=== PATIENT | male | born 1970 | race Caucasian/White ===

== ENCOUNTER 2017-02-20 21:13 | Emergency (ER) | payer SELFPAY ==
--- NOTE | 2017-02-20 22:27 | ER Document Report ---
ED General - General Chief Complaint: Leg Pain Stated Complaint: LEFT LEG PAIN Time Seen by Provider: 02/20/17 22:06 Notes: Patient is a 38-year-old male presents with complaint of pain behind his left knee. Patient says it has been there for approximately week. He feels a small swollen area behind his knee. The remainder of his leg is nontender. 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 Patient also mentions that he does take testosterone for bodybuilding. She denies any fevers. No vomiting. No diarrhea. No chest pain. Patient's second complaint is that at times he will get some pressure behind his ears. Patient says it seems to happen more when he is angry. He denies any actual headache. He denies any focal weakness or numbness. No fevers. He does not take blood pressure medications. He again says his chest pressure behind his ears. He says he does not really have any pressure into the top of his head. He does chewing tobacco. He does not smoke. He does drink alcohol daily. He denies recent URI. - Related Data Allergies/Adverse Reactions: No Known Allergies Allergy (Unverified 10/01/11 22:59) Past Medical History - Social History Smoking Status: Never Smoker Chew tobacco use (# tins/day): Yes Frequency of alcohol use: Heavy Drug Abuse: None Family History: Reviewed & Not Pertinent Patient has suicidal ideation: No Patient has homicidal ideation: No Renal/ Medical History: Denies: Hx Peritoneal Dialysis - Immunizations Hx Diphtheria, Pertussis, Tetanus Vaccination: Yes Review of Systems - Review of Systems Notes: My Normal Review Basic REVIEW OF SYSTEMS: CONSTITUTIONAL : Denies fever, chills, or sweats. Denies recent illness. EENT: Occasional pressure behind ears. CARDIOVASCULAR: Denies chest pain. RESPIRATORY: Denies cough, cold, or chest congestion. Denies shortness of breath, difficulty breathing, or wheezing. GASTROINTESTINAL: Denies abdominal pain. Denies nausea, vomiting, or diarrhea. Denies constipation. Last BM: MUSCULOSKELETAL: Pain behind left knee. SKIN: Denies rash or skin lesions. NEUROLOGICAL: Denies altered mental status or loss of consciousness. Denies headache. Denies weakness or paralysis or loss of use of either side. Denies problems with gait or speech. Denies sensory or motor loss. ALL OTHER SYSTEMS REVIEWED AND NEGATIVE. Physical Exam - Vital signs Vitals: Temp Pulse Resp BP Pulse Ox 98 F 81 18 158/84 H 97 02/20/17 21:22 02/20/17 21:22 02/20/17 21:22 02/20/17 21:22 02/20/17 21:22 - Notes Notes: General Appearance: Well nourished, alert, cooperative, no acute distress, no obvious discomfort. Well-appearing. Vitals: reviewed, See vital signs table. Head: no swelling or tenderness to the head Eyes: PERRL, EOMI, Conjuctiva clear Ears: Normal-appearing tympanic membranes bilaterally. Mouth: No decreasd moisture Lungs: No wheezing, No rales, No rhonci, No accessory muscle use, good air exchange bilaterally. Heart: Normal rate, Regular rythm, No murmur, no rub Extremities: strength 5/5 in all extremities, good pulses in all extremities, more area of swelling behind left knee. Slight tenderness to palpation bilateral left knee. Remainder of left lower extremity is nontender and there is no edema. No redness. No warmth. Right lower extremity is normal. Bedside ultrasound was performed. Popliteal vein appears compressible on bedside ultrasound. Left femoral vein is fully compressible with good augmentation. Skin: warm, dry, appropriate color, no rash Neuro: speech clear, oriented x 3, normal affect, responds appropriately to questions. Renal nerves II through XII are intact. Distal sensation intact. Patient moves all extremities without difficulty. Course - Re-evaluation Re-evalutation: 02/20/17 23:21 I suspect the patient most likely is a Pradhan's cyst behind his knee based on his job and the small amount of localized swelling just behind the left knee itself. I did do a bedside ultrasound to look for evidence of DVT. I did not see any. I did explain to the patient length that it is less likely has a DVT however the bedside ultrasound is not 100% and that still very important that he follows up tomorrow for official venous ultrasound of the left lower extremity. I did write prescription for him to have this performed. Patient agrees to do this. Patient is on testosterone which puts him at risk for developing clots. The testosterone is not prescribed. I informed him that he must stop taking this as it can cause multiple medical problems including heart attack and cardiomyopathy. Patient agrees. Patient will be discharged home. Patient encouraged to return to ER if he has fevers, chest pain, difficulty breathing, severe headache, vomiting, or worsening swelling or pain in the leg. Patient agrees with plan will be discharged home. Patient occasionally has a pressure behind his ears. He denies any actual true headache. He has no neck pain. I encouraged him to quit all tobacco use including chewing tobacco. Dictation of this chart was performed using voice recognition software; therefore, there may be some unintended grammatical errors. - Vital Signs Vital signs: Temp Pulse Resp BP Pulse Ox 98 F 66 14 135/82 H 98 02/20/17 21:22 02/20/17 22:32 02/20/17 22:32 02/20/17 22:32 02/20/17 22:32 Discharge - Discharge Clinical Impression: Leg pain Qualifiers: Laterality: left Qualified Code(s): M79.605 - Pain in left leg Condition: Good Disposition: HOME, SELF-CARE Additional Instructions: Please return to the ER immediately if you develop worsening leg pain or leg swelling, fevers, severe headache, vomiting, difficulty breathing, or feel unwell. Please call the number on the prescription tomorrow morning to arrange for the ultrasound to evaluate further for the possibility of a blood clot. I did perform a ultrasound today which did not show evidence of a blood clot, but the bedside ultrasound I did is limited and not 100% and that is why it is very oimportant you still have the official outpatient venous ultrasound. Please stop chewing tobacco. Forms: Follow-Up Outpatient Testing
[2017-02-20 22:33] VITALS: BP 135/82
== END 2017-02-20 22:32 | disposition home or self-care (01) ==
LOC: ER 21:13
DX: M25.562 Pain in left knee (principal); R22.42 Localized swelling, mass and lump, left lower limb; R68.89 Other general symptoms and signs; Z79.899 Other long term (current) drug therapy; Z72.0 Tobacco use
CPT/HCPCS: 99283

== ENCOUNTER → 2017-02-25 | Outpatient (CLI) | payer SELFPAY ==
--- NOTE | 2017-02-25 16:15 | XCELERA REPORT ---
[address] [address] Lower Extremity Venous Evaluation Name: SHEBA RINALDI Age: 46 yrs Gender: Male : 1970 Patient Status: Outpatient Patient Location: Study Date: 02/25/2017 09:42 AM Procedure: Color flow and duplex imaging of the veins of the left lower extremity as well as the right Common Femoral vein. Reason For Study: LLE PAIN Ordering Physician: LJ DENIES Performed By: Niurka Beyer Right Sided Venous Evaluation The right common femoral vein is fully compressible. Spontaneous and phasic flow is present in the right common femoral vein. Left Sided Venous Evaluation Normal vessel filling wall to wall, compression and augmentation as well as Colour flow down to the infrageniculate veins. Interpretation Summary No duplex evidence of DVT or obstruction in the left lower extremity nor in the right Common Femoral vein. : LJ DENISE > Ming Garcia
== END ==
LOC: SP 09:34
PROVIDERS: ATTEND Emergency Medicine
DX: M79.605 Pain in left leg (principal)
CPT/HCPCS: 93971

== ENCOUNTER 2019-02-01 22:02 | Emergency (ER) | payer SELFPAY ==
[2019-02-02] MEDS ORDERED: ASPIRIN 81 MG TABLET, CHEWABLE PO ONE (03:04)
--- NOTE | 2019-02-02 04:04 | RADIOLOGY REPORT (SQ) ---
EXAM DESCRIPTION: X-ray single view chest. CLINICAL HISTORY: 48 years Male, chest pain COMPARISON: None. TECHNIQUE: Single portable x-ray view of the chest performed on 02/02/2019 at 3:35 AM FINDINGS: The lungs are well expanded and are clear. There is no evidence of a pneumothorax. The cardiac silhouette is normal in size and configuration. The mediastinal contours are normal. No acute osseous abnormality is identified. No focal soft tissue abnormalities are seen. Lines and tubes: None. IMPRESSION: No evidence of acute intrathoracic disease.
[2019-02-02 04:44] LABS: ABSOLUTE BASOPHILS # (AUTO) 0.1 10^3/uL (0.0-0.2); ABSOLUTE EOSINOPHILS # (AUTO) 0.7 10^3/uL (0.0-0.6); ABSOLUTE LYMPHOCYTES (AUTO) 3.1 10^3/uL (0.5-4.7); ABSOLUTE MONOCYTES (AUTO) 1.1 10^3/uL (0.1-1.4); ABSOLUTE NEUT (AUTO) 3.4 10^3/uL (1.7-8.2); BASOPHILS % (AUTO) 0.6 % (0-2); EOSINOPHILS % (AUTO) 7.9 % (0-6); HEMATOCRIT 49.2 % (37.9-51.0); HEMOGLOBIN 16.4 g/dL (13.5-17.0); LYMPHOCYTES % (AUTO) 37.1 % (13-45); MEAN CORPUSCULAR HEMOGLOBIN 30.4 pg (27.0-33.4); MEAN CORPUSCULAR HGB CONC 33.3 g/dL (32.0-36.0); MEAN CORPUSCULAR VOLUME 91 fl (80-97); MONOCYTES % (AUTO) 12.8 % (3-13); PLATELET COUNT 241 10^3/uL (150-450); RED CELL DISTRIBUTION WIDTH 14.2 % (11.5-14.0); SEGMENTED NEUTROPHILS % (AUTO) 41.6 % (42-78); TOTAL CELLS COUNTED % (AUTO) 100 %; WHITE BLOOD COUNT 8.2 10^3/uL (4.0-10.5)
--- NOTE | 2019-02-02 04:57 | ER Document Report ---
ED General - General Chief Complaint: Headache Stated Complaint: HEADACHE, CHEST PAIN, EARS RINGING Time Seen by Provider: 02/02/19 02:27 Mode of Arrival: Ambulatory Information source: Patient Notes: Patient is a 48-year-old male presents emergency department chest pain over the last 3 days, radiation to the right arm and shortness of breath. He reports he has been working outside a lot lately and has not been drinking much water. TRAVEL OUTSIDE OF THE [place] IN LAST 30 DAYS: No - Related Data Allergies/Adverse Reactions: No Known Allergies Allergy (Unverified 10/01/11 22:59) Past Medical History - General Information source: Patient - Social History Smoking Status: Former Smoker Frequency of alcohol use: None Drug Abuse: None Family History: Reviewed & Not Pertinent Patient has suicidal ideation: No Patient has homicidal ideation: No - Medical History Medical History: Negative Renal/ Medical History: Denies: Hx Peritoneal Dialysis Surgical Hx: Negative - Immunizations Hx Diphtheria, Pertussis, Tetanus Vaccination: Yes Review of Systems - Review of Systems Constitutional: Malaise EENT: No symptoms reported Cardiovascular: Chest pain Respiratory: No symptoms reported Gastrointestinal: No symptoms reported Genitourinary: No symptoms reported Male Genitourinary: No symptoms reported Musculoskeletal: No symptoms reported Skin: No symptoms reported Hematologic/Lymphatic: No symptoms reported Neurological/Psychological: No symptoms reported Physical Exam - Vital signs Vitals: Temp Pulse Resp BP Pulse Ox 97.5 F 79 18 140/88 H 97 02/01/19 22:12 02/01/19 22:12 02/01/19 22:12 02/01/19 22:12 02/01/19 22:12 - Notes Notes: PHYSICAL EXAMINATION: GENERAL: Well-appearing, well-nourished and in no acute distress. HEAD: Atraumatic, normocephalic. EYES: Pupils equal round and reactive to light, extraocular movements intact, sclera anicteric, conjunctiva are normal. ENT: Nares patent, oropharynx clear without exudates. Moist mucous membranes. NECK: Normal range of motion, supple without lymphadenopathy LUNGS: Breath sounds clear to auscultation bilaterally and equal. No wheezes rales or rhonchi. HEART: Regular rate and rhythm without murmurs ABDOMEN: Soft, nontender, nondistended abdomen. No guarding, no rebound. No masses appreciated. Musculoskeletal: Normal range of motion, no pitting or edema. No cyanosis. NEUROLOGICAL: Cranial nerves grossly intact. Normal speech, normal gait. Normal sensory, motor exams PSYCH: Normal mood, normal affect. SKIN: Warm, Dry, normal turgor, no rashes or lesions noted. Course - Re-evaluation Re-evalutation: Patient appears well, nontoxic and vital signs are within normal limits. Patient reports that he has been working on the yard a lot in the last 2 days and has not had much water to drink. He reports he has had intermittent chest pain however this all resolved prior to arrival. He states the only reason he came here is at his 's insistence. He denies any acute complaints at this time. His labs are unremarkable. We did discussed doing a repeat troponin although I feel this is probably unnecessary as the chest pain has been completely resolved now for at least 6 hours and his chest pain had been lasting the last 2 days. His EKG here was unremarkable, shows a sinus rhythm, rate of 63, normal axis, no ST segment elevations or depressions to suggest ischemia. His chest x-ray was negative and all of his labs were normal. I feel that his malaise and chest pain are likely due to mild dehydration. All test results were discussed with the patient, patient states he is ready to go home and will not stay any longer as he has to work in the morning. ED return precautions were discussed to include worsening chest pain, shortness of breath, nausea, vomiting and all of this was discussed verbally with the patient. The patient's emergency department workup and current diagnosis were explained to the patient and or family. Follow-up instructions were provided. Medications if prescribed were discussed. Instructions for when to return to the emergency department including specific worrisome symptoms were discussed with the patient and/or family. - Vital Signs Vital signs: Temp Pulse Resp BP Pulse Ox 97.7 F 59 L 16 119/73 100 02/02/19 05:15 02/02/19 06:09 02/02/19 06:09 02/02/19 06:09 02/02/19 06:09 - Laboratory Result Diagrams: 02/02/19 03:56 02/02/19 05:15 Laboratory results interpreted by me: 02/02/19 03:56 RDW 14.2 H Seg Neutrophils % 41.6 L Eosinophils % 7.9 H Absolute Eosinophils 0.7 H Discharge - Discharge Clinical Impression: Chest pain Qualifiers: Chest pain type: unspecified Qualified Code(s): R07.9 - Chest pain, unspecified Condition: Stable Disposition: HOME, SELF-CARE Additional Instructions: Your work-up today was unremarkable. We ran lab work, and EKG and chest x-ray. All of these were normal today. Your symptoms are most likely being caused by excessive amount of time spent outside working. Please continue to stay hydrated drink at least 8 full glasses of water daily but increases if you are doing strenuous activities outside. Please return to the emergency department for any new or worsening symptoms.
[2019-02-02 05:47] LABS: ALANINE AMINOTRANSFERASE 48 U/L (21-72); ALBUMIN 3.9 g/dL (3.5-5.0); ALKALINE PHOSPHATASE 66 U/L (38-126); ANION GAP 9 (5-19); ASPARTATE AMINO TRANSFERASE 27 U/L (17-59); BILIRUBIN,DIRECT 0.3 mg/dL (0.0-0.4); BILIRUBIN,TOTAL 0.3 mg/dL (0.2-1.3); BLOOD UREA NITROGEN 10 mg/dL (7-20); CALCIUM 9.7 mg/dL (8.4-10.2); CARBON DIOXIDE 27 mmol/L (22-30); CHLORIDE 105 mmol/L (98-107); CREATINE KINASE 92 U/L (55-170); GLUCOSE 103 mg/dL (75-110); POTASSIUM 4.6 mmol/L (3.6-5.0); SODIUM 140.8 mmol/L (137-145); TOTAL PROTEIN 6.7 g/dL (6.3-8.2)
[2019-02-02 06:10] VITALS: BP 119/73
--- NOTE | 2019-02-04 07:46 | EKG REPORT ---
SEVERITY:- NORMAL ECG - SINUS RHYTHM : Confirmed by: Isidoro Flores MD 04-Feb-2019 07:45:55
== END 2019-02-02 06:09 | disposition home or self-care (01) ==
LOC: ER 22:02
DX: R07.9 Chest pain, unspecified (principal); R51 Headache; R06.02 Shortness of breath; M79.601 Pain in right arm; Z87.891 Personal history of nicotine dependence
CPT/HCPCS: 36415; 71045; 80053; 82550; 84484; 85025; 93005; 93010; 99284

== ENCOUNTER 2019-02-28 04:14 | Emergency (ER) | payer SELFPAY ==
--- NOTE | 2019-02-28 05:14 | RADIOLOGY REPORT (SQ) ---
EXAM DESCRIPTION: Bilateral tibia fibula, 02/28/2019, 4:45 AM CLINICAL HISTORY: 48 years Male fell off horse, deformity noted mid tib/fib COMPARISON: None TECHNIQUE: 2 views of each tibia and fibula FINDINGS: Negative for fracture or dislocation. Soft tissue swelling of the left leg.. Joint spaces are preserved bilaterally. IMPRESSION: Negative for acute osseous abnormality.
--- NOTE | 2019-02-28 07:08 | ER Document Report ---
ED General - General Chief Complaint: Leg Injury Stated Complaint: LEFT LEG PAIN Time Seen by Provider: 02/28/19 06:11 TRAVEL OUTSIDE OF THE [place] IN LAST 30 DAYS: No - HPI Notes: Patient is a 48-year-old male who presents to the emergency department for evaluation of an injury to his left leg. He states he fell off of his horse last night at about 8 PM. He is concerned his leg might be broken. He denies hitting his head. No neck or back pain. No loss of consciousness. He denies any pain anywhere other than there. - Related Data Allergies/Adverse Reactions: No Known Allergies Allergy (Unverified 10/01/11 22:59) Past Medical History - General Information source: Patient - Social History Smoking Status: Former Smoker Frequency of alcohol use: Occasional Family History: Reviewed & Not Pertinent, CAD Patient has suicidal ideation: No Patient has homicidal ideation: No Renal/ Medical History: Denies: Hx Peritoneal Dialysis Skin Medical History: Reports Hx MRSA - Immunizations Hx Diphtheria, Pertussis, Tetanus Vaccination: Yes Review of Systems - Review of Systems Constitutional: No symptoms reported EENT: No symptoms reported Cardiovascular: No symptoms reported Respiratory: No symptoms reported Gastrointestinal: No symptoms reported Genitourinary: No symptoms reported Musculoskeletal: See HPI Skin: No symptoms reported Neurological/Psychological: No symptoms reported Physical Exam - Vital signs Vitals: Temp Pulse Resp BP Pulse Ox 97.3 F 96 14 134/78 H 96 02/28/19 04:19 02/28/19 04:19 02/28/19 04:19 02/28/19 04:19 02/28/19 04:19 - Notes Notes: This is a pleasant 48-year-old male, appears stated age in no acute distress. Head is normocephalic and atraumatic. Pupils are equal round, reactive to light. Oral mucosa is moist. Heart is regular rate and rhythm, lungs are clear to auscultate bilaterally. Abdomen is soft, nontender, normoactive bowel sounds. Examination of the left lower extremity yields a hematoma to the mid lower leg, medial aspect. It measures approximately 4 cm in diameter. It is tender to the touch. It is edematous but not tense. Neurovascularly intact distally. He has no fibular head tenderness, no medial or lateral malleolus tenderness to palpation. No tenderness to bony palpation of the foot. Course - Re-evaluation Re-evalutation: 02/28/19 07:06 Patient presents emergency department for evaluation after a left lower leg inju ry. He does have a hematoma in that area. I talked to the patient as well as his extensively about the possibility of the development of compartment syndrome. We talked at length about symptoms that should prompt immediate return. He is told to rest, elevate the leg. He voiced understanding. His did as well. They are to return to the emergency department with worsening or new concerning symptoms of any sort. - Vital Signs Vital signs: Temp Pulse Resp BP Pulse Ox 97.9 F 91 16 106/87 H 100 02/28/19 07:25 02/28/19 07:25 02/28/19 07:25 02/28/19 07:25 02/28/19 07:25 Discharge - Discharge Clinical Impression: Hematoma of left lower extremity Qualifiers: Encounter type: initial encounter Qualified Code(s): S80.12XA - Contusion of left lower leg, initial encounter Condition: Stable Disposition: HOME, SELF-CARE Instructions: Hematoma ([facility]) Additional Instructions: Elevate the leg when possible. Tylenol as needed for pain. If you develop worsening swelling, increased pain, numbness, coolness of the extremity, or any other concerning symptoms, this could be a sign of a surgical emergency called compartment syndrome. You need to return immediately to the emergency department for reevaluation should any of the symptoms develop.
[2019-02-28 07:30] VITALS: BP 106/87
== END 2019-02-28 07:25 | disposition home or self-care (01) ==
LOC: ER 04:14
DX: S80.12XA Contusion of left lower leg, initial encounter (principal); V80.010A Animal-rider injured by fall from or being thrown from horse in noncollision accident, initial encounter
CPT/HCPCS: 99283

== ENCOUNTER 2019-12-09 18:35 | Emergency (ER) | payer SELFPAY ==
--- NOTE | 2019-12-09 19:08 | ER Document Report ---
ED Medical Screen (RME) - General Chief Complaint: Abscess Stated Complaint: ABSCESS/BUTTOCK Time Seen by Provider: 12/09/19 19:07 Mode of Arrival: Ambulatory Information source: Patient Notes: 49-year-old male presented to ED for complaint of pain to the left upper buttocks. He states he gets testosterone shots in the buttocks and he had 1 a week and a half ago in his left buttocks. He states it was sore when he went to get the neck shot so use the other buttocks. He states on Saturday they went to give him another injection and the flew back pus from the area. He states the wound has not gotten any better so he has come to the emergency room to be examined. He is alert oriented respirations regular and unlabored speaking in full sentences. I have greeted and performed a rapid initial assessment of this patient. A comprehensive ED assessment and evaluation of the patient, analysis of test results and completion of medical decision making process will be conducted by an additional ED providers. TRAVEL OUTSIDE OF THE [place] IN LAST 30 DAYS: No - Related Data Allergies/Adverse Reactions: No Known Allergies Allergy (Unverified 10/01/11 22:59) Past Medical History Renal/ Medical History: Denies: Hx Peritoneal Dialysis Skin Medical History: Reports Hx MRSA - Immunizations Hx Diphtheria, Pertussis, Tetanus Vaccination: Yes Physical Exam - Vital signs Vitals: Temp Pulse Resp BP Pulse Ox 98.9 F 82 16 142/75 H 97 12/09/19 18:44 12/09/19 18:44 12/09/19 18:44 12/09/19 18:44 12/09/19 18:44 Course - Vital Signs Vital signs: Temp Pulse Resp BP Pulse Ox 98.9 F 82 16 142/75 H 97 12/09/19 18:44 12/09/19 18:44 12/09/19 18:44 12/09/19 18:44 12/09/19 18:44
[2019-12-09 19:46] LABS: ABSOLUTE EOSINOPHILS # (AUTO) 0.3 10^3/uL (0.0-0.6); ABSOLUTE LYMPHOCYTES (AUTO) 1.9 10^3/uL (0.5-4.7); ABSOLUTE MONOCYTES (AUTO) 1.2 10^3/uL (0.1-1.4); ABSOLUTE NEUT (AUTO) 5.6 10^3/uL (1.7-8.2); BASOPHILS % (AUTO) 0.5 % (0-2); EOSINOPHILS % (AUTO) 3.6 % (0-6); HEMATOCRIT 47.7 % (37.9-51.0); HEMOGLOBIN 16.6 g/dL (13.5-17.0); LYMPHOCYTES % (AUTO) 21.3 % (13-45); MEAN CORPUSCULAR HEMOGLOBIN 31.2 pg (27.0-33.4); MEAN CORPUSCULAR HGB CONC 34.7 g/dL (32.0-36.0); MEAN CORPUSCULAR VOLUME 90 fl (80-97); MONOCYTES % (AUTO) 12.8 % (3-13); PLATELET COUNT 347 10^3/uL (150-450); RED BLOOD COUNT 5.31 10^6/uL (4.35-5.55); RED CELL DISTRIBUTION WIDTH 14.4 % (11.5-14.0); SEGMENTED NEUTROPHILS % (AUTO) 61.8 % (42-78); TOTAL CELLS COUNTED % (AUTO) 100 %
--- NOTE | 2019-12-09 19:55 | RADIOLOGY REPORT (SQ) ---
EXAM DESCRIPTION: U/S NON-OB PELVIS W/O DOP IMAGES COMPLETED DATE/TIME: 12/09/2019 7:45 pm REASON FOR STUDY: Tenderness left outer buttocks COMPARISON: None. TECHNIQUE: Dynamic and static grayscale images acquired of the pelvis via transabdominal approach an d recorded on PACS. Additional selected color Doppler and spectral images recorded. LIMITATIONS: None. FINDINGS: Sonographic imaging is performed in the area of concern in the outer left buttock. Soft t issue swelling. There is an area there is echogenic that measures 4.8 x 2.4 x 1.4 cm. This could re present a resolving hematoma. No abscess is appreciated. IMPRESSION: No abscess is seen. Possible resolving hematoma. COMMENT: None TECHNICAL DOCUMENTATION: JOB ID: [id number] 2010 [employer]- All Rights Reserved Rev-12/06 Reading location - IP/workstation name: [email or web address]
[2019-12-09 20:12] LABS: ALBUMIN 4.4 g/dL (3.5-5.0); ALKALINE PHOSPHATASE 74 U/L (38-126); ANION GAP 9 (5-19); ASPARTATE AMINO TRANSFERASE 35 U/L (17-59); BILIRUBIN,TOTAL 0.3 mg/dL (0.2-1.3); BLOOD UREA NITROGEN 17 mg/dL (7-20); CALCIUM 9.9 mg/dL (8.4-10.2); CARBON DIOXIDE 29 mmol/L (22-30); CHLORIDE 100 mmol/L (98-107); GLUCOSE 85 mg/dL (75-110); POTASSIUM 4.5 mmol/L (3.6-5.0); TOTAL PROTEIN 7.5 g/dL (6.3-8.2)
--- NOTE | 2019-12-09 21:15 | ER Document Report ---
ED General - General Chief Complaint: Skin Problem Stated Complaint: ABSCESS/BUTTOCK Time Seen by Provider: 12/09/19 19:07 Mode of Arrival: Ambulatory TRAVEL OUTSIDE OF THE [place] IN LAST 30 DAYS: No - HPI Notes: Patient is a 49-year-old male who presents to the emergency department for evaluation. He has twice weekly injections of testosterone in his buttocks, performed by his . He alternates these injections in the left and right buttock, on Saturday and Sundays. He has had no problems or difficulties, until last week where 1 injection caused a "small knot." He states that happens intermittently. He states that the next time they went to inject in that area, his umu back, and "got some pus." He states it was milky and green. He said no fevers or chills. No nausea or vomiting. Really no increased pain over what his baseline is with these injections. - Related Data Allergies/Adverse Reactions: No Known Allergies Allergy (Unverified 10/01/11 22:59) Home Medications: testosterone injection Past Medical History - General Information source: Patient - Social History Smoking Status: Never Smoker Chew tobacco use (# tins/day): Yes Frequency of alcohol use: Social Drug Abuse: None Family History: Reviewed & Not Pertinent, CAD Patient has homicidal ideation: No Renal/ Medical History: Denies: Hx Peritoneal Dialysis Skin Medical History: Reports Hx MRSA - Immunizations Hx Diphtheria, Pertussis, Tetanus Vaccination: Yes Review of Systems - Review of Systems Skin: See HPI -: Yes All other systems reviewed and negative Physical Exam - Vital signs Vitals: Temp Pulse Resp BP Pulse Ox 98.9 F 82 16 142/75 H 97 12/09/19 18:44 12/09/19 18:44 12/09/19 18:44 12/09/19 18:44 12/09/19 18:44 - Notes Notes: This is a pleasant 49-year-old male who appears stated age, no acute distress. Head normocephalic and atraumatic, pupils are equal round, reactive to light. Oral mucosa is moist. Uvula is midline. Heart regular rate and rhythm, lungs are clear to auscultation bilaterally. Abdomen soft, nontender, normoactive bowel sounds. Examination of bilateral buttock she has no skin changes. No significant tenderness. No palpable mass. Course - Re-evaluation Re-evalutation: 12/09/19 21:13 Patient presents to the emergency department for evaluation. He had laboratory investigations and ultrasound is ordered through triage. Ultrasound revealed findings consistent with a hematoma but no abscess. Laboratory investigations are unremarkable. He has no signs of overlying cellulitis. We will have him follow-up with primary care, return to the ED with worsening. - Vital Signs Vital signs: Temp Pulse Resp BP Pulse Ox 98.9 F 82 16 142/75 H 97 12/09/19 19:03 12/09/19 18:44 12/09/19 18:44 12/09/19 18:44 12/09/19 18:44 - Laboratory Result Diagrams: 12/09/19 19:25 12/09/19 19:25 Laboratory results interpreted by me: 12/09/19 12/09/19 19:25 19:25 RDW 14.4 H ALT 53 H Discharge - Discharge Clinical Impression: Hematoma Condition: Stable Disposition: HOME, SELF-CARE Instructions: Hematoma ([facility]) Additional Instructions: Ultrasound revealed a hematoma, but no abscess. Watch for signs of infection, including redness, increased pain, fevers, vomiting. Return to the emergency department with worsening or new concerning symptoms of any sort.
[2019-12-09 21:33] VITALS: BP 134/90
== END 2019-12-09 21:33 | disposition home or self-care (01) ==
LOC: ER 18:35
DX: S30.0XXA Contusion of lower back and pelvis, initial encounter (principal); L02.31 Cutaneous abscess of buttock; X58.XXXA Exposure to other specified factors, initial encounter
CPT/HCPCS: 36415; 76856; 80053; 85025; 99282